=== PATIENT | female | born 1985 | race Caucasian/White ===

== ENCOUNTER 2017-12-25 17:46 | Emergency (ER) | payer OTHER ==
[2017-12-25] MEDS ORDERED: KETOROLAC 30 MG/ML 1 ML VIAL IVP STA (18:33)
[2017-12-25] MEDS ORDERED: SODIUM CHLORIDE 0.9% 1,000 ML IV STA (18:34)
[2017-12-25 18:48] LABS: Appearance,Urine Clear (Clear); Bilirubin,Urine Negative (Negative); Blood,Urine Trace (Negative); Color,Urine Yellow; Glucose,Urine (UA) Negative (Negative); Ketones,Urine Negative (Negative); Leukocyte Esterase,Urine Negative (Negative); Mucus,Urine Rare /hpf; Nitrite,Urine Negative (Negative); PH, Urine 7.5 (5.0-8.0); Protein,Urine Negative (Negative); RBC,Urine <1 /hpf (0-5); Specific Gravity,Urine 1.008 (1.001-1.035); Squamous Epithelial Cell,Urine 1 /hpf (0-4); Urobilinogen,Urine <2.0 mg/dL (<2.0); WBC,Urine 1 /hpf (0-5)
[2017-12-25 18:54] LABS: Basophils # (A) 0.1 k/uL (0-0.2); Basophils % (A) 1 %; Eosinophils # (A) 0.4 k/uL (0-0.7); Eosinophils % (A) 5 %; HCT 39.8 % (34.0-46.0); Lymphocytes # (A) 3.5 k/uL (1.0-4.8); Lymphocytes % (A) 41 %; MCH 29.6 pg (25.0-35.0); MCHC 32.7 g/dL (31.0-37.0); MCV 90.5 fL (80.0-100.0); Mean Platelet Volume 6.5; Monocytes # (A) 0.5 k/uL (0-1.0); Monocytes % (A) 6 %; Neutrophils # (A) 3.8 k/uL (1.3-7.7); Neutrophils % (A) 44 %; Platelet Count 353 k/uL (150-450); RBC 4.39 m/uL (3.80-5.40); RDW 14.3 % (11.5-15.5); WBC 8.6 k/uL (3.8-10.6)
[2017-12-25 19:06] LABS: ALT 425 U/L (9-52); AST 162 U/L (14-36); Albumin 4.4 g/dL (3.5-5.0); Alkaline Phosphatase 116 U/L (38-126); Amylase 74 U/L (30-110); Anion Gap 9 mmol/L; Blood Urea Nitrogen 12 mg/dL (7-17); Carbon Dioxide 25 mmol/L (22-30); Chloride 107 mmol/L (98-107); Glucose 95 mg/dL (74-99); Lipase 40 U/L (23-300); Sodium 141 mmol/L (137-145); Total Bilirubin 0.3 mg/dL (0.2-1.3); Total Protein 7.6 g/dL (6.3-8.2)
[2017-12-25] MEDS ORDERED: ONDANSETRON ODT 4 MG TAB PO STA (19:24)
--- NOTE | 2017-12-25 19:42 | ED ---
Abdominal Pain HPI - General Source: patient Mode of arrival: ambulatory Limitations: no limitations - History of Present Illness MD Complaint: abdominal pain -: days(s) (14) Location: RUQ Consistency: constant Improves With: nothing Worsens With: nothing Associated Symptoms: nausea <Joslyn Marte - Last Filed: 12/25/17 19:38> <Gagan Amaya - Last Filed: 12/25/17 20:59> - General Chief Complaint: Abdominal Pain Stated Complaint: poss food poisening Time Seen by Provider: 12/25/17 18:21 - History of Present Illness Initial Comments: 32-year-old female presents with right upper quadrant pain is gotten worse over the last 2 weeks. Patient states she has a history of hepatitis C from IV drug abuse. Patient states she's never got treatment but she does have a referral to a GI specialist. Patient does feel nausea but no vomiting. Patient is a history of this ulcerative colitis to she has had some irregular bowel movements on and off as well. No history of kidney stones no dysuria. No chance of . Patient has had her gallbladder removed. (Joslyn Marte) - Related Data Allergies Allergy/AdvReac Type Severity Reaction Status Date / Time codeine Allergy Rash/Hives Verified 12/25/17 17:53 meperidine [From Demerol] Allergy Rash/Hives Verified 12/25/17 17:53 Review of Systems ROS Other: All systems not noted in ROS Statement are negative. Constitutional: Denies: fever Endocrine: Reports: fatigue Gastrointestinal: Reports: abdominal pain, nausea. Denies: vomiting, diarrhea Genitourinary: Denies: urgency, dysuria <Joslyn Marte - Last Filed: 12/25/17 19:38> ROS Other: All systems not noted in ROS Statement are negative. <Gagan Amaya - Last Filed: 12/25/17 20:59> ROS Statement: Those systems with pertinent positive or pertinent negative responses have been documented in the HPI. Past Medical History Additional Past Medical History / Comment(s): UC, diverticulitis, Hep C History of Any Multi-Drug Resistant Organisms: None Reported Past Surgical History: Cholecystectomy, Orthopedic Surgery, Tonsillectomy Past Psychological History: Anxiety, PTSD Smoking Status: Current every day smoker Past Alcohol Use History: None Reported Past Drug Use History: Marijuana <Joslyn Marte - Last Filed: 12/25/17 19:38> General Exam Limitations: no limitations General appearance: alert, in no apparent distress Head exam: Present: atraumatic, normocephalic, normal inspection Eye exam: Present: normal appearance ENT exam: Present: normal exam, mucous membranes moist Neck exam: Present: meningismus Respiratory exam: Present: normal lung sounds bilaterally Cardiovascular Exam: Present: regular rate, normal rhythm, normal heart sounds. Absent: systolic murmur, diastolic murmur, rubs, gallop, clicks GI/Abdominal exam: Present: soft, tenderness (Right upper quadrant tender), normal bowel sounds. Absent: distended, guarding, rebound, rigid Neurological exam: Present: alert, oriented X3, CN II-XII intact Psychiatric exam: Present: normal affect, normal mood <Joslyn Marte - Last Filed: 12/25/17 19:38> Course <Joslyn Marte - Last Filed: 12/25/17 19:38> <Gagan Amaya - Last Filed: 12/25/17 20:59> Vital Signs 12/25/17 17:54 Temperature 98.7 F Pulse Rate 106 H Respiratory 18 Rate Blood Pressure 120/79 O2 Sat by Pulse 97 Oximetry - Reevaluation(s) Reevaluation #1: 12/25/17 20:58 The patient is resting comfortably has no further complaints at this time I did review the imaging and reports patient will be discharged with follow-up with her doctor and with GI. (Gagan Amaya) Medical Decision Making - Lab Data Result diagrams: 12/25/17 18:45 12/25/17 18:45 <Joslyn Marte - Last Filed: 12/25/17 19:38> - Lab Data Result diagrams: 12/25/17 18:45 12/25/17 18:45 <Gagan Amaya - Last Filed: 12/25/17 20:59> - Medical Decision Making Reviewed labs slightly elevated liver enzymes patient aware waiting on ultrasound. Dr. Amaya be taking over patient care. Patient given Toradol for discomfort along with Zofran for nausea. (Joslyn Marte) - Lab Data Lab Results 12/25/17 12/25/17 12/25/17 Range/Units 18:36 18:36 18:45 WBC (3.8-10.6) k/uL RBC (3.80-5.40) m/uL Hgb (11.4-16.0) gm/dL Hct (34.0-46.0) % MCV (80.0-100.0) fL MCH (25.0-35.0) pg MCHC (31.0-37.0) g/dL RDW (11.5-15.5) % Plt Count (150-450) k/uL Neutrophils % % Lymphocytes % % Monocytes % % Eosinophils % % Basophils % % Neutrophils # (1.3-7.7) k/uL Lymphocytes # (1.0-4.8) k/uL Monocytes # (0-1.0) k/uL Eosinophils # (0-0.7) k/uL Basophils # (0-0.2) k/uL Sodium 141 (137-145) mmol/L Potassium 4.0 (3.5-5.1) mmol/L Chloride 107 (98-107) mmol/L Carbon Dioxide 25 (22-30) mmol/L Anion Gap 9 mmol/L BUN 12 (7-17) mg/dL Creatinine 0.70 (0.52-1.04) mg/dL Est GFR (CKD-EPI)AfAm >90 (>60 ml/min/1.73 sqM) Est GFR (CKD-EPI)NonAf >90 (>60 ml/min/1.73 sqM) Glucose 95 (74-99) mg/dL Calcium 10.0 (8.4-10.2) mg/dL Total Bilirubin 0.3 (0.2-1.3) mg/dL AST 162 H (14-36) U/L ALT 425 H (9-52) U/L Alkaline Phosphatase 116 (38-126) U/L Total Protein 7.6 (6.3-8.2) g/dL Albumin 4.4 (3.5-5.0) g/dL Amylase 74 (30-110) U/L Lipase 40 (23-300) U/L Urine Color Yellow Urine Appearance Clear (Clear) Urine pH 7.5 (5.0-8.0) Ur Specific [place] 1.008 (1.001-1.035) Urine Protein Negative (Negative) Urine Glucose (UA) Negative (Negative) Urine Ketones Negative (Negative) Urine Blood Trace H (Negative) Urine Nitrite Negative (Negative) Urine Bilirubin Negative (Negative) Urine Urobilinogen <2.0 (<2.0) mg/dL Ur Leukocyte Esterase Negative (Negative) Urine RBC <1 (0-5) /hpf Urine WBC 1 (0-5) /hpf Ur Squamous Epith Cells 1 (0-4) /hpf Urine Mucus Rare H (None) /hpf Urine HCG, Qual Not Detected (Not Detectd) 12/25/17 Range/Units 18:45 WBC 8.6 (3.8-10.6) k/uL RBC 4.39 (3.80-5.40) m/uL Hgb 13.0 (11.4-16.0) gm/dL Hct 39.8 (34.0-46.0) % MCV 90.5 (80.0-100.0) fL MCH 29.6 (25.0-35.0) pg MCHC 32.7 (31.0-37.0) g/dL RDW 14.3 (11.5-15.5) % Plt Count 353 (150-450) k/uL Neutrophils % 44 % Lymphocytes % 41 % Monocytes % 6 % Eosinophils % 5 % Basophils % 1 % Neutrophils # 3.8 (1.3-7.7) k/uL Lymphocytes # 3.5 (1.0-4.8) k/uL Monocytes # 0.5 (0-1.0) k/uL Eosinophils # 0.4 (0-0.7) k/uL Basophils # 0.1 (0-0.2) k/uL Sodium (137-145) mmol/L Potassium (3.5-5.1) mmol/L Chloride (98-107) mmol/L Carbon Dioxide (22-30) mmol/L Anion Gap mmol/L BUN (7-17) mg/dL Creatinine (0.52-1.04) mg/dL Est GFR (CKD-EPI)AfAm (>60 ml/min/1.73 sqM) Est GFR (CKD-EPI)NonAf (>60 ml/min/1.73 sqM) Glucose (74-99) mg/dL Calcium (8.4-10.2) mg/dL Total Bilirubin (0.2-1.3) mg/dL AST (14-36) U/L ALT (9-52) U/L Alkaline Phosphatase (38-126) U/L Total Protein (6.3-8.2) g/dL Albumin (3.5-5.0) g/dL Amylase (30-110) U/L Lipase (23-300) U/L Urine Color Urine Appearance (Clear) Urine pH (5.0-8.0) Ur Specific [place] (1.001-1.035) Urine Protein (Negative) Urine Glucose (UA) (Negative) Urine Ketones (Negative) Urine Blood (Negative) Urine Nitrite (Negative) Urine Bilirubin (Negative) Urine Urobilinogen (<2.0) mg/dL Ur Leukocyte Esterase (Negative) Urine RBC (0-5) /hpf Urine WBC (0-5) /hpf Ur Squamous Epith Cells (0-4) /hpf Urine Mucus (None) /hpf Urine HCG, Qual (Not Detectd) Disposition <Joslyn Marte - Last Filed: 12/25/17 19:38> Is patient prescribed a controlled substance at d/c from ED?: No <Gagan Amaya - Last Filed: 12/25/17 20:59> Clinical Impression: RUQ abdominal pain, Hepatitis C Disposition: HOME SELF-CARE Condition: Good Instructions: Abdominal Pain (ED) Referrals: Yuliana Bañuelos MD [Primary Care Provider] - 1-2 days Berlin Cruz MD [STAFF PHYSICIAN] - 1-2 days
[2017-12-25] MEDS ORDERED: ALPRAZolam 1 MG TAB PO STA (20:09)
--- NOTE | 2017-12-25 20:11 | US ---
EXAMINATION TYPE: US abdomen complete DATE OF EXAM: 12/25/2017 COMPARISON: NONE CLINICAL HISTORY: Pain. N/V/D x 1 day, patient thinks she had food poisoning, h/o fracturing 3 ribs o n the right side 3 months ago, pt unsure if pain is from that or her liver since she has Hep C, lula cystectomy EXAM MEASUREMENTS: Liver Length: 15.8 cm Gallbladder Wall: Surgically absent CBD: 0.5 cm Spleen: 9.4 cm Right Kidney: 9.0 x 3.9 x 4.2 cm Left Kidney: 9.6 x 4.6 x 5.2 cm limitations due to bowel gas, patient unable to take deep breath and hold due to rib pain, large dumont bitus Pancreas: limited views appear wnl Liver: difficult to penetrate, not enlarged Gallbladder: Surgically absent The liver is homogenous. The intrahepatic portion of the IVC and proximal abdominal aorta are within normal limits. There is no evidence of cholelithiasis. Common bile duct is unremarkable. The visu alized portions of the pancreas are homogenous. The spleen is unremarkable. Kidneys are symmetric a nd free of hydronephrosis. No renal lesions are seen. IMPRESSION: No sonographic evidence of acute intra-abdominal process.
[2017-12-25 21:06] VITALS: BP 114/73; PULSE 72; RESP 16; TEMP 97.8
== END 2017-12-25 21:06 | disposition home or self-care (01) ==
LOC: EC 17:46
DX: B19.20 Unspecified viral hepatitis C without hepatic coma (principal); F17.200 Nicotine dependence, unspecified, uncomplicated; Z90.49 Acquired absence of other specified parts of digestive tract; Z88.5 Allergy status to narcotic agent
CPT/HCPCS: 36415; 80053; 82150; 83690; 85025; 81001; 81025; 76700; 99284; 96374; 96361 ×2; J1885

== ENCOUNTER 2017-12-26 13:06 | Inpatient (IN) | payer OTHER ==
[2017-12-26 14:14] LABS: ALT 495 U/L (9-52); AST 296 U/L (14-36); Albumin 3.9 g/dL (3.5-5.0); Alkaline Phosphatase 178 U/L (38-126); Anion Gap 8 mmol/L; Blood Urea Nitrogen 20 mg/dL (7-17); Calcium 10.2 mg/dL (8.4-10.2); Carbon Dioxide 19 mmol/L (22-30); Chloride 112 mmol/L (98-107); Glucose 120 mg/dL (74-99); Potassium 4.1 mmol/L (3.5-5.1); Sodium 139 mmol/L (137-145); Total Bilirubin 0.6 mg/dL (0.2-1.3); Total Protein 6.8 g/dL (6.3-8.2)
[2017-12-26 14:28] LABS: HCT 38.5 % (34.0-46.0); HGB 12.5 gm/dL (11.4-16.0); MCHC 32.6 g/dL (31.0-37.0); MCV 92.1 fL (80.0-100.0); Mean Platelet Volume 6.7; Platelet Count 313 k/uL (150-450); RBC 4.18 m/uL (3.80-5.40); RDW 14.8 % (11.5-15.5); WBC 19.9 k/uL (3.8-10.6)
[2017-12-26] MEDS ORDERED: LORazepam 2 MG/ML INJ IV STA (14:41)
[2017-12-26] MEDS ORDERED: ONDANSETRON 4 MG/2 ML VIAL IVP STA (14:41)
[2017-12-26] MEDS ORDERED: SODIUM CHLORIDE 0.9% 1,000 ML IV STA ×2 (14:41→15:53)
[2017-12-26 14:56] LABS: Band Neutrophils % 14 %; Monocytes # (M) 1.19 k/uL (0-1.0); Neutrophils % (M) 76 %; Nucleated Red Blood Cells 0 /100 WBC (0-0); Total Cells Counted 200
[2017-12-26 14:57] LABS: Polychromasia Present; Toxic Vacuolation Present
[2017-12-26 14:58] LABS: Appearance,Urine Clear (Clear); Bilirubin,Urine Negative (Negative); Blood,Urine Negative (Negative); Color,Urine Light Yellow; Glucose,Urine (UA) Negative (Negative); Ketones,Urine Negative (Negative); Leukocyte Esterase,Urine Negative (Negative); Nitrite,Urine Negative (Negative); Protein,Urine Negative (Negative); Specific Gravity,Urine 1.005 (1.001-1.035); Urobilinogen,Urine <2.0 mg/dL (<2.0)
[2017-12-26] MEDS ORDERED: diphenhydrAMINE 50 MG/ML 1 ML VIAL IVP STA ×2 (15:14→15:55)
[2017-12-26] MEDS ORDERED: ACETAMINOPHEN IV (For NPO) 1,000 MG in EMPTY BAG 1 BAG IVPB STA (15:53)
[2017-12-26] MEDS ORDERED: FAMOTIDINE 20 MG/2 ML VIAL IV STA (15:55)
[2017-12-26] MEDS ORDERED: cefTRIAXone IN SWFI 1,000 MG/10 ML SYRINGE IVP STA (16:04)
[2017-12-26] MEDS ORDERED: cefTRIAXone 2,000 MG in SODIUM CHLORIDE 0.9% 100 ML IVPB STA (16:06)
--- NOTE | 2017-12-26 16:07 | ED ---
General Adult HPI - General Source: patient, RN notes reviewed, old records reviewed Mode of arrival: EMS Limitations: no limitations <Vin Weaver - Last Filed: 12/26/17 16:04> <Song Coello - Last Filed: 12/26/17 17:34> - General Chief complaint: Nausea/Vomiting/Diarrhea Stated complaint: fever/nausea/vomiting Time Seen by Provider: 12/26/17 14:35 - History of Present Illness Initial comments: Patient is a 32-year-old female significant past medical history for hepatitis C , ulcerative colitis, diverticulitis, presenting to the emergency room today with a chief complaint of increased nausea vomiting and diarrhea. Patient does admit that she was seen here in the emergency room yesterday for same complaint. She states she went home she was able to eat dinner. She states she woke up at 5 AM with increased symptoms of nausea vomiting diarrhea. Denies any signs of blood in the emesis or stool. Patient does admit to pain in the lower abdomen. Unsure if it's similar to pain that she's had in the past with her colitis or diverticulitis. Patient denies any other complaint or symptoms. (Vin Weaver) - Related Data Home Medications Medication Instructions Recorded Confirmed ALPRAZolam [Xanax] 0.5 mg PO DAILY PRN 12/26/17 12/26/17 Acetaminophen Tab [Tylenol Tab] 500 mg PO Q6H PRN 12/26/17 12/26/17 Dicyclomine [Bentyl] 20 mg PO QID PRN 12/26/17 12/26/17 Mesalamine [Asacol Hd] 800 mg PO QID 12/26/17 12/26/17 Methocarbamol [Robaxin-750] 750 mg PO TID PRN 12/26/17 12/26/17 Mirtazapine [Remeron] 30 mg PO HS PRN 12/26/17 12/26/17 Ondansetron HCl [Zofran] 8 mg PO BID PRN 12/26/17 12/26/17 cloNIDine HCL [Catapres] 0.1 mg PO TID 12/26/17 12/26/17 Allergies Allergy/AdvReac Type Severity Reaction Status Date / Time codeine Allergy Rash/Hives Verified 12/26/17 14:57 meperidine [From Demerol] Allergy Rash/Hives Verified 12/26/17 14:57 Review of Systems ROS Other: All systems not noted in ROS Statement are negative. <Vin Weaver - Last Filed: 12/26/17 16:04> ROS Other: All systems not noted in ROS Statement are negative. <ModeSong - Last Filed: 12/26/17 17:34> ROS Statement: Those systems with pertinent positive or pertinent negative responses have been documented in the HPI. Past Medical History Past Medical History: No Reported History Additional Past Medical History / Comment(s): UC, diverticulitis, Hep C History of Any Multi-Drug Resistant Organisms: None Reported Past Surgical History: Cholecystectomy, Orthopedic Surgery, Tonsillectomy Past Psychological History: Anxiety, PTSD Smoking Status: Current every day smoker Past Alcohol Use History: None Reported Past Drug Use History: Marijuana <Vin Weaver - Last Filed: 12/26/17 16:04> General Exam Limitations: no limitations <Vin Weaver - Last Filed: 12/26/17 16:04> <ModeSong - Last Filed: 12/26/17 17:34> - General Exam Comments Initial Comments: General: The patient is awake and alert, in no distress, and does not appear acutely ill. Eye: Pupils are equal, round and reactive to light, extra-ocular movements are intact. No nystagmus. There is normal conjunctiva bilaterally. No signs of icterus. Ears, nose, mouth and throat: There are moist mucous membranes and no oral lesions. Neck: The neck is supple, there is no tenderness or JVD. Cardiovascular: There is a regular rate and rhythm. No murmur, rub or gallop is appreciated. Respiratory: Lungs are clear to auscultation, respirations are non-labored, breath sounds are equal. No wheezes, stridor, rales, or rhonchi. Gastrointestinal: Abdomen soft on palpation. Patient does have tenderness both right and left lower quadrants. No rebound, guarding. Musculoskeletal: Normal ROM, no tenderness. Strength 5/5. Sensation intact. Pulses equal bilaterally 2+. Neurological: A&O x 3. CN II-XII intact, There are no obvious motor or sensory deficits. Coordination appears grossly intact. Speech is normal. Skin: Skin is warm and dry and no rashes or lesions are noted. Psychiatric: Cooperative, appropriate mood & affect, normal judgment. (Vin Weaver) Pelvic exam was done mild cervical motion tenderness noticed cervical cultures were done and Flagyl was added to pre-existing Rocephin and was spoke to Dr. Escobar considering she had a fever chills she be treated for possible sepsis. Endometritis. CT report was reviewed noticed inflammation or fullness of the uterus pelvic ultrasound is ordered as well (Song Coello) Course <Vin Weaver - Last Filed: 12/26/17 16:04> <Song Coello - Last Filed: 12/26/17 17:34> Vital Signs 12/26/17 12/26/17 12/26/17 13:31 15:45 16:59 Temperature 99.6 F 100.2 F H 100.3 F H Pulse Rate 148 H 123 H 126 H Respiratory 18 18 18 Rate Blood Pressure 99/70 101/59 101/64 O2 Sat by Pulse 99 100 99 Oximetry General is reassessed at term 1630, CT of the abdomen now showed along the nodule 2.7 cm in size review of the CT also showed some inflammation of the uterus white count is elevated she is afebrile and she also stated that 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 Escobar.Our Director Of Sustainability Programs orlin Bowen goes to City call (Song Coello) - Reevaluation(s) Reevaluation #1: 12/26/17 16:06 Case discussed and signed out to attending physician Dr. Coello at this time. Patient Ct currently pending. (Vin Weaver) Medical Decision Making - Lab Data Result diagrams: 12/26/17 13:45 12/26/17 13:45 <Vin Weaver - Last Filed: 12/26/17 16:04> - Lab Data Result diagrams: 12/26/17 13:45 12/26/17 13:45 <Song Coello - Last Filed: 12/26/17 17:34> - Lab Data Lab Results 12/26/17 12/26/17 12/26/17 Range/Units 13:45 13:45 14:50 WBC 19.9 H (3.8-10.6) k/uL RBC 4.18 (3.80-5.40) m/uL Hgb 12.5 (11.4-16.0) gm/dL Hct 38.5 (34.0-46.0) % MCV 92.1 (80.0-100.0) fL MCH 30.0 (25.0-35.0) pg MCHC 32.6 (31.0-37.0) g/dL RDW 14.8 (11.5-15.5) % Plt Count 313 (150-450) k/uL Neutrophils % (Manual) 76 % Band Neutrophils % 14 % Lymphocytes % (Manual) 5 % Monocytes % (Manual) 6 % Neutrophils # (Manual) 17.90 H (1.3-7.7) k/uL Lymphocytes # (Manual) 1.00 (1.0-4.8) k/uL Monocytes # (Manual) 1.19 H (0-1.0) k/uL Nucleated RBCs 0 (0-0) /100 WBC Manual Slide Review Performed Toxic Vacuolation Present Polychromasia Present Sodium 139 (137-145) mmol/L Potassium 4.1 (3.5-5.1) mmol/L Chloride 112 H (98-107) mmol/L Carbon Dioxide 19 L (22-30) mmol/L Anion Gap 8 mmol/L BUN 20 H (7-17) mg/dL Creatinine 0.70 (0.52-1.04) mg/dL Est GFR (CKD-EPI)AfAm >90 (>60 ml/min/1.73 sqM) Est GFR (CKD-EPI)NonAf >90 (>60 ml/min/1.73 sqM) Glucose 120 H (74-99) mg/dL Plasma Lactic Acid Eulalio (0.7-2.0) mmol/L Calcium 10.2 (8.4-10.2) mg/dL Total Bilirubin 0.6 (0.2-1.3) mg/dL AST 296 H (14-36) U/L ALT 495 H (9-52) U/L Alkaline Phosphatase 178 H (38-126) U/L Total Protein 6.8 (6.3-8.2) g/dL Albumin 3.9 (3.5-5.0) g/dL Urine Color Light Yellow Urine Appearance Clear (Clear) Urine pH 7.0 (5.0-8.0) Ur Specific [place] 1.005 (1.001-1.035) Urine Protein Negative (Negative) Urine Glucose (UA) Negative (Negative) Urine Ketones Negative (Negative) Urine Blood Negative (Negative) Urine Nitrite Negative (Negative) Urine Bilirubin Negative (Negative) Urine Urobilinogen <2.0 (<2.0) mg/dL Ur Leukocyte Esterase Negative (Negative) 12/26/17 Range/Units 16:50 WBC (3.8-10.6) k/uL RBC (3.80-5.40) m/uL Hgb (11.4-16.0) gm/dL Hct (34.0-46.0) % MCV (80.0-100.0) fL MCH (25.0-35.0) pg MCHC (31.0-37.0) g/dL RDW (11.5-15.5) % Plt Count (150-450) k/uL Neutrophils % (Manual) % Band Neutrophils % % Lymphocytes % (Manual) % Monocytes % (Manual) % Neutrophils # (Manual) (1.3-7.7) k/uL Lymphocytes # (Manual) (1.0-4.8) k/uL Monocytes # (Manual) (0-1.0) k/uL Nucleated RBCs (0-0) /100 WBC Manual Slide Review Toxic Vacuolation Polychromasia Sodium (137-145) mmol/L Potassium (3.5-5.1) mmol/L Chloride (98-107) mmol/L Carbon Dioxide (22-30) mmol/L Anion Gap mmol/L BUN (7-17) mg/dL Creatinine (0.52-1.04) mg/dL Est GFR (CKD-EPI)AfAm (>60 ml/min/1.73 sqM) Est GFR (CKD-EPI)NonAf (>60 ml/min/1.73 sqM) Glucose (74-99) mg/dL Plasma Lactic Acid Eulalio 2.0 (0.7-2.0) mmol/L Calcium (8.4-10.2) mg/dL Total Bilirubin (0.2-1.3) mg/dL AST (14-36) U/L ALT (9-52) U/L Alkaline Phosphatase (38-126) U/L Total Protein (6.3-8.2) g/dL Albumin (3.5-5.0) g/dL Urine Color Urine Appearance (Clear) Urine pH (5.0-8.0) Ur Specific [place] (1.001-1.035) Urine Protein (Negative) Urine Glucose (UA) (Negative) Urine Ketones (Negative) Urine Blood (Negative) Urine Nitrite (Negative) Urine Bilirubin (Negative) Urine Urobilinogen (<2.0) mg/dL Ur Leukocyte Esterase (Negative) Disposition <Vin Weaver - Last Filed: 12/26/17 16:04> <Song Coello - Last Filed: 12/26/17 17:34> Clinical Impression: Fever, Lung nodule, Leukocytosis Disposition: ADMITTED IP TO THIS HOSP Condition: Good Referrals: Yuliana Bañuelos MD [Primary Care Provider] - 1-2 days
--- NOTE | 2017-12-26 16:14 | CT ---
EXAMINATION TYPE: CT abdomen pelvis w con DATE OF EXAM: 12/26/2017 HISTORY: Pelvic pain with nausea and diarrhea CT DLP: 1558mGycm Automated Exposure Control for Dose Reduction was Utilized. CONTRAST: CT scan of the abdomen and pelvis is performed with IV Contrast, patient injected with 100 mL of Isov ue 300. COMPARISON: 12/25/2017 abdominal ultrasound FINDINGS: LUNG BASES: Bibasilar subsegmental atelectasis is present. 7 mm right lower lobe pulmonary nodule is also seen in series 3 image 4. LIVER/GB: No significant abnormality is appreciated. PANCREAS: No significant abnormality is seen. No ductal dilatation. SPLEEN: No significant abnormality is seen. No spinal megaly. ADRENALS: No significant abnormality is seen. KIDNEYS: Kidneys enhance symmetrically without hydronephrosis. BOWEL: Appendix is air-filled and within normal limits. No large or small bowel dilatation to suggest obstruction.. UTERUS/ADNEXA: Uterus is diffusely heterogenous. Follicular and/or cystic changes are seen of the ova fidencio. LYMPH NODES: No greater than 1cm abdominal or pelvic lymph nodes are appreciated. OSSEOUS STRUCTURES: Osseous structures are intact. IMPRESSION: 1. Heterogenous uterine enhancement and follicular/cystic changes of the ovaries. These changes may b e physiologic, however pelvic ultrasound could be performed for further assessment in this patient wi th pelvic pain as there is no apparent acute intra-abdominal pathology on CT to explain the patient's pelvic pain. 2. 7 mm right lower lobe pulmonary nodule for which follow-up CT thorax is recommended in 3-6 months due to the groundglass nature to evaluate for resolution or progression.
[2017-12-26] MEDS ORDERED: cefTRIAXone IN SWFI 2,000 MG/20 ML SYRINGE IVP ONE (16:30)
[2017-12-26] MEDS ORDERED: HYDROmorphone 0.5 MG/0.5 ML SYRINGE IVP STA (17:03)
[2017-12-26] MEDS ORDERED: METOCLOPRAMIDE 5 MG/ML 2 ML VIAL IVP STA (17:04)
[2017-12-26] MEDS ORDERED: metroNIDAZOLE-NS PMX 500 MG in SALINE 1 100ML.BAG IVPB STA (17:08)
[2017-12-26] MEDS ORDERED: HYDROmorphone 1 MG/ML 1 ML SYRINGE IVP PRN ×2 (17:34→17:47)
[2017-12-26] MEDS ORDERED: ONDANSETRON 4 MG/2 ML VIAL IVP PRN (17:34)
[2017-12-26] MEDS ORDERED: KETOROLAC 30 MG/ML 1 ML VIAL IVP PRN (17:34)
[2017-12-26] MEDS ORDERED: NALOXONE 0.4 MG/ML 1 ML VIAL IV PRN (17:34)
[2017-12-26] MEDS ORDERED: ONDANSETRON 4 MG TAB PO PRN (17:44)
[2017-12-26] MEDS ORDERED: ACETAMINOPHEN TAB 500 MG TAB PO PRN (17:44)
[2017-12-26] MEDS ORDERED: ALPRAZolam 0.5 MG TAB PO PRN (17:44)
[2017-12-26] MEDS ORDERED: SODIUM CHLORIDE 0.9% 2,000 ML IV ONE (17:46)
--- NOTE | 2017-12-26 19:40 | US ---
EXAMINATION TYPE: US transvaginal DATE OF EXAM: 12/26/2017 COMPARISON: NONE CLINICAL HISTORY: Pain. Pain TECHNIQUE: Transvaginal (TV). EXAM MEASUREMENTS: Uterus: 7.8 x 3.8 x 5.0 cm Endometrial Stripe: 0.30 cm Right Ovary: 2.9 x 2.1 x 2.5 cm Left Ovary: 2.3 x 1.7 x 4.3 cm 1. Uterus: Anteverted Nabothian cyst seen. 2. Endometrium: wnl 3. Right Ovary: wnl 4. Left Ovary: wnl Spectral, color and waveform doppler imaging shows good arterial and venous flow within the ovaries ; there is no evidence for ovarian torsion. 5. Bilateral Adnexa: wnl 6. Posterior cul-de-sac: wnl IMPRESSION: NO ACUTE PROCESS.
[2017-12-26] MEDS: BALSALAZIDE DISODIUM 750 MG CAPSULE PO SCH ×2 (21:20→21:41)
[2017-12-26] MEDS: SODIUM CHLORIDE 0.9% 1,000 ML IV SCH (21:40)
[2017-12-26] MEDS: cloNIDine HCL 0.1 MG TAB PO SCH (21:41)
[2017-12-26] MEDS: METHOCARBAMOL 750 MG TAB PO PRN (21:41)
[2017-12-26] MEDS: DICYCLOMINE 20 MG TAB PO PRN (21:41)
[2017-12-26] MEDS: MIRTAZAPINE 15 MG TAB PO PRN (21:42)
[2017-12-26] MEDS: ALPRAZolam 0.5 MG TAB PO SCH (22:45)
--- NOTE | 2017-12-27 00:10 | HP ---
HISTORY AND PHYSICAL DATE OF SERVICE: 12/26/2017. CHIEF COMPLAINT: A 32-year-old with nausea, vomiting, diarrhea. HISTORY OF PRESENT ILLNESS: A 32-year-old white female, history hepatitis C, Crohn's, diverticulitis, came into the ER with increased nausea, vomiting, diarrhea, and pelvic pain. ER ultrasound showed a possible follicular cyst. She had increasing nausea, vomiting, and diarrhea. She has been on a intermediate house for three months clean from cocaine. She wants her pain medicine increased and her Xanax increased to what her doses are at home. Denies any other symptoms. REVIEW OF SYSTEMS: Fourteen point review of systems negative except for mentioned in HPI. HOME MEDICINES: 1. Xanax t.i.d. 2. Bentyl 20 q.i.d. 3. Asacol 800 q.i.d. 4. Robaxin 750 t.i.d. 5. Remeron 30 at bedtime. 6. Zofran 8 mg b.i.d. 7. Catapres 0.1 t.i.d. for hypertension. ALLERGIES: CODEINE, DEMEROL. SURGICAL HISTORY: Cholecystectomy, orthopedic surgery, tonsillectomy, anxiety, posttraumatic stress disorder, current everyday smoker, history of Crohn disease, diverticulitis. PHYSICAL EXAM: A white female, obese. BMI is over 35. Temp 99 to a low grade 100.3, pulse is 108 at this time was 140s to 120s. On a media monitor. CARDIOVASCULAR: S1, S2. LUNGS: Transmitted upper airway sounds. GI: Soft. No guarding or rebound tenderness lower quadrants. HEMATOLOGY: Negative Homans. PELVIC: Exam in the ER showed mild cervical motion tenderness. PLAN: Cultures were done. Started on Flagyl and Rocephin for possible sepsis due to fevers and chills she had at home with possible sepsis, endometritis. Await RENTAL AGENT consult for possible PID. Infectious Disease consult. Continue with broad-spectrum antibiotics. Leukocytosis secondary to the pelvic infection possible pelvic inflammatory disease, endometritis. Please see further orders. Check labs in the morning. We will continue with broad- spectrum antibiotics. MMODL / IJN: [id number] /
[2017-12-27] MEDS: metroNIDAZOLE-NS PMX 500 MG in SALINE 1 100ML.BAG IVPB SCH ×3 (02:44→20:34)
[2017-12-27] MEDS: HYDROmorphone 1 MG/ML 1 ML SYRINGE IVP PRN ×7 (02:48→21:29)
[2017-12-27] MEDS: SODIUM CHLORIDE 0.9% 1,000 ML IV SCH ×2 (06:05→15:37)
[2017-12-27 07:08] LABS: Basophils # (A) 0.1 k/uL (0-0.2); Basophils % (A) 0 %; Eosinophils # (A) 0.2 k/uL (0-0.7); Eosinophils % (A) 1 %; HCT 31.3 % (34.0-46.0); Lymphocytes # (A) 2.2 k/uL (1.0-4.8); Lymphocytes % (A) 7 %; MCH 30.2 pg (25.0-35.0); MCV 94.3 fL (80.0-100.0); Mean Platelet Volume 6.8; Monocytes # (A) 0.9 k/uL (0-1.0); Monocytes % (A) 3 %; Neutrophils # (A) 26.7 k/uL (1.3-7.7); Neutrophils % (A) 88 %; Platelet Count 256 k/uL (150-450); RBC 3.32 m/uL (3.80-5.40); RDW 15.1 % (11.5-15.5)
[2017-12-27 07:23] LABS: ALT 282 U/L (9-52); AST 98 U/L (14-36); Albumin 2.7 g/dL (3.5-5.0); Alkaline Phosphatase 109 U/L (38-126); Anion Gap 2 mmol/L; Blood Urea Nitrogen 12 mg/dL (7-17); Calcium 8.3 mg/dL (8.4-10.2); Carbon Dioxide 23 mmol/L (22-30); Chloride 117 mmol/L (98-107); Glucose 96 mg/dL (74-99); Potassium 4.1 mmol/L (3.5-5.1); Sodium 142 mmol/L (137-145); Total Bilirubin 0.3 mg/dL (0.2-1.3); Total Protein 5.2 g/dL (6.3-8.2)
[2017-12-27 07:38] LABS: WBC 30.4 k/uL (3.8-10.6)
[2017-12-27] MEDS ORDERED: cefTRIAXone IN SWFI 2,000 MG/20 ML SYRINGE IVP SCH (09:00)
[2017-12-27] MEDS: BALSALAZIDE DISODIUM 750 MG CAPSULE PO SCH ×4 (09:14→21:48)
[2017-12-27] MEDS: NICOTINE 21MG/24HR PATCH TRANSDERM SCH (09:22)
[2017-12-27] MEDS: ALPRAZolam 0.5 MG TAB PO SCH ×3 (09:22→21:28)
[2017-12-27] MEDS: cloNIDine HCL 0.1 MG TAB PO SCH ×3 (09:42→21:29)
--- NOTE | 2017-12-27 13:45 | P.GSCN ---
History of Present Illness Consult date: 12/27/17 Reason for Consult: Abdominal pain History of present illness: This is a 32-year-old female with Dr. Kaleb Altamirano service. Patient complaints of abdominal pain. Patient ascribes nausea. She's also had some melena. Patient noted to have elevated white count. There is question history of ulcerative colitis. Past Medical History Past Medical History: No Reported History Additional Past Medical History / Comment(s): UC, diverticulitis, Hep C History of Any Multi-Drug Resistant Organisms: None Reported Past Surgical History: Cholecystectomy, Orthopedic Surgery, Tonsillectomy Past Psychological History: Anxiety, PTSD Smoking Status: Current every day smoker Past Alcohol Use History: None Reported Past Drug Use History: Marijuana - Past Family History Mother Family Medical History: No Reported History Medications and Allergies Home Medications Medication Instructions Recorded Confirmed Type ALPRAZolam [Xanax] 0.5 mg PO DAILY PRN 12/26/17 12/26/17 History Acetaminophen Tab [Tylenol Tab] 500 mg PO Q6H PRN 12/26/17 12/26/17 History Dicyclomine [Bentyl] 20 mg PO QID PRN 12/26/17 12/26/17 History Mesalamine [Asacol Hd] 800 mg PO QID 12/26/17 12/26/17 History Methocarbamol [Robaxin-750] 750 mg PO TID PRN 12/26/17 12/26/17 History Mirtazapine [Remeron] 30 mg PO HS PRN 12/26/17 12/26/17 History Ondansetron HCl [Zofran] 8 mg PO BID PRN 12/26/17 12/26/17 History cloNIDine HCL [Catapres] 0.1 mg PO TID 12/26/17 12/26/17 History Allergies Allergy/AdvReac Type Severity Reaction Status Date / Time codeine Allergy Rash/Hives Verified 12/26/17 21:29 meperidine [From Demerol] Allergy Rash/Hives Verified 12/26/17 21:29 Surgical - Exam Vital Signs Temp Pulse Resp BP Pulse Ox 99.6 F 148 H 18 99/70 99 12/26/17 13:31 12/26/17 13:31 12/26/17 13:31 12/26/17 13:31 12/26/17 13:31 - General well developed, no distress - Eyes PERRL - ENT normal pinna - Neck no masses - Respiratory normal expansion - Cardiovascular Rhythm: regular - Abdomen mild tenderness, no rebound/guarding Abdomen: soft Results - Labs 12/27/17 06:40 12/27/17 06:40 Abnormal Lab Results - Last 24 Hours (Table) 12/26/17 12/26/17 12/27/17 Range/Units 13:45 13:45 06:40 WBC 19.9 H 30.4 H* (3.8-10.6) k/uL RBC 3.32 L (3.80-5.40) m/uL Hgb 10.0 L D (11.4-16.0) gm/dL Hct 31.3 L (34.0-46.0) % Neutrophils # 26.7 H (1.3-7.7) k/uL Neutrophils # (Manual) 17.90 H (1.3-7.7) k/uL Monocytes # (Manual) 1.19 H (0-1.0) k/uL Chloride 112 H (98-107) mmol/L Carbon Dioxide 19 L (22-30) mmol/L BUN 20 H (7-17) mg/dL Glucose 120 H (74-99) mg/dL Calcium (8.4-10.2) mg/dL AST 296 H (14-36) U/L ALT 495 H (9-52) U/L Alkaline Phosphatase 178 H (38-126) U/L Total Protein (6.3-8.2) g/dL Albumin (3.5-5.0) g/dL 12/27/17 Range/Units 06:40 WBC (3.8-10.6) k/uL RBC (3.80-5.40) m/uL Hgb (11.4-16.0) gm/dL Hct (34.0-46.0) % Neutrophils # (1.3-7.7) k/uL Neutrophils # (Manual) (1.3-7.7) k/uL Monocytes # (Manual) (0-1.0) k/uL Chloride 117 H (98-107) mmol/L Carbon Dioxide (22-30) mmol/L BUN (7-17) mg/dL Glucose (74-99) mg/dL Calcium 8.3 L (8.4-10.2) mg/dL AST 98 H (14-36) U/L ALT 282 H (9-52) U/L Alkaline Phosphatase (38-126) U/L Total Protein 5.2 L (6.3-8.2) g/dL Albumin 2.7 L (3.5-5.0) g/dL Diabetes panel 12/26/17 12/27/17 Range/Units 13:45 06:40 Sodium 139 142 (137-145) mmol/L Potassium 4.1 4.1 (3.5-5.1) mmol/L Chloride 112 H 117 H (98-107) mmol/L Carbon Dioxide 19 L 23 (22-30) mmol/L BUN 20 H 12 (7-17) mg/dL Creatinine 0.70 0.58 (0.52-1.04) mg/dL Glucose 120 H 96 (74-99) mg/dL Calcium 10.2 8.3 L (8.4-10.2) mg/dL AST 296 H 98 H (14-36) U/L ALT 495 H 282 H (9-52) U/L Alkaline Phosphatase 178 H 109 (38-126) U/L Total Protein 6.8 5.2 L (6.3-8.2) g/dL Albumin 3.9 2.7 L (3.5-5.0) g/dL Calcium panel 12/26/17 12/27/17 Range/Units 13:45 06:40 Calcium 10.2 8.3 L (8.4-10.2) mg/dL Albumin 3.9 2.7 L (3.5-5.0) g/dL Pituitary panel 12/26/17 12/27/17 Range/Units 13:45 06:40 Sodium 139 142 (137-145) mmol/L Potassium 4.1 4.1 (3.5-5.1) mmol/L Chloride 112 H 117 H (98-107) mmol/L Carbon Dioxide 19 L 23 (22-30) mmol/L BUN 20 H 12 (7-17) mg/dL Creatinine 0.70 0.58 (0.52-1.04) mg/dL Glucose 120 H 96 (74-99) mg/dL Calcium 10.2 8.3 L (8.4-10.2) mg/dL Adrenal panel 12/26/17 12/27/17 Range/Units 13:45 06:40 Sodium 139 142 (137-145) mmol/L Potassium 4.1 4.1 (3.5-5.1) mmol/L Chloride 112 H 117 H (98-107) mmol/L Carbon Dioxide 19 L 23 (22-30) mmol/L BUN 20 H 12 (7-17) mg/dL Creatinine 0.70 0.58 (0.52-1.04) mg/dL Glucose 120 H 96 (74-99) mg/dL Calcium 10.2 8.3 L (8.4-10.2) mg/dL Total Bilirubin 0.6 0.3 (0.2-1.3) mg/dL AST 296 H 98 H (14-36) U/L ALT 495 H 282 H (9-52) U/L Alkaline Phosphatase 178 H 109 (38-126) U/L Total Protein 6.8 5.2 L (6.3-8.2) g/dL Albumin 3.9 2.7 L (3.5-5.0) g/dL Assessment and Plan Assessment: Abdominal pain, leukocytosis patient will be observed. Due to the melanotic she will undergo EGD in the a.m.
[2017-12-27 14:26] LABS: C. trachomatis,PCR Negative (Neg,Equiv); Chlamydia trachomatis Source Cervix; N. gonorrhoeae,PCR Negative (Neg,Equiv); Neisseria Source Cervix
[2017-12-27] MEDS: IOPAMIDOL-300 CONTRAST 30 ML VIAL (ORAL USE) PO PRN ×2 (15:56→17:09)
--- NOTE | 2017-12-27 17:17 | CONS ---
CONSULTATION DATE OF SERVICE: 12/27/2017. REASON FOR CONSULTATION: Sepsis. HISTORY OF PRESENT ILLNESS: The patient is a 32-year-old, female with past medical history significant for ulcerative colitis for the patient is currently on Asacol. She presented to the ER at [facility] yesterday afternoon with chief complaints of nausea, vomiting and diarrhea in addition to the abdominal pain. The pain has been mostly in the right upper quadrant area, more of a dull aching pain 3 to 4/10, and no radiation. The patient did feel nauseated and did have 2 episodes of vomiting. Did not report any diarrhea to me. However, did mention the same to the ER physician. The patient did have a fever of 102 degrees Fahrenheit at home. With these symptoms the patient presented to the ER and the patient did have a low-grade fever of 100.2. The patient did have CT of abdominal pain, unfortunately was only with IV contrast shows heterogenous uterine and has cystic changes of the ovaries. No abnormality was seen in the abdominal organs. Subsequently the patient did have a transvaginal ultrasound which was no acute process. The patient has been treated with Rocephin and Flagyl. The patient who did have a white count of 90 is up to 30,000; hence, Infectious Disease was consulted for further recommendations regarding antibiotic therapy. Patient also noted to have slightly elevated liver enzymes. REVIEW OF SYSTEMS: CONSTITUTIONAL: Positive for weakness along with the fever. EYES: No complaint. ENT: No complaint. RESPIRATORY: No complaint. CARDIOVASCULAR: No complaint. GENITOURINARY: No complaint. GASTROINTESTINAL: As per HPI. MUSCULOSKELETAL: No complaint. INTEGUMENTARY: No complaint. PSYCHOLOGICAL: No complaint. ENDOCRINE: No complaint. NEUROLOGIC: No complaint. PAST MEDICAL HISTORY: Significant for ulcerative colitis, diverticulitis, chronic hepatitis C. PAST SURGICAL HISTORY: Cholecystectomy, tonsillectomy. PAST PSYCHOLOGICAL HISTORY: Positive for anxiety and PTSD. SOCIAL HISTORY: Patient is current everyday smoker. Does admit to marijuana use. FAMILY HISTORY: No pertinent findings noticed. ALLERGIES: To CODEINE, . MEDICATIONS: Includes the patient is currently on Tylenol, Xanax, Quinolone, Catapres, Bentyl, Dilaudid, Toradol, Robaxin, Flagyl, Remeron, Narcan, nicotine patch, Zofran, Xanax, Rocephin. EXAMINATION: Blood pressure is 104/70 with a pulse of 104, temperature 98.1. T-max is 100.2. She is 99% on room air. General description is an elderly female lying in bed in no distress. No tachypnea or accessory muscle of respiration use. HEENT: Shows pallor, no scleral icterus. Oral mucosa is dry. No pharyngeal erythema or thrush. NECK: Trachea is central. No thyromegaly. LUNGS: Unlabored breathing. Clear to auscultation anteriorly. No wheeze or crackle. HEART: S1, S2. Regular rate and rhythm. ABDOMEN: Soft, mild tender right upper quadrant. No guarding or rigidity. No organomegaly. EXTREMITIES: No edema of the feet. SKIN EXAMINATION: No rash or mass palpable. NEUROLOGICAL: Patient is awake, alert, oriented, normal. LABS: Hemoglobin 10, white count 30.4, BUN of 12, creatinine 0.58. CT abdomen and pelvis and ultrasound report as mentioned above. DIAGNOSTIC IMPRESSION AND PLAN: Patient admitted to the hospital with sepsis and patient did have fever of 102 degrees Fahrenheit, the patient did have elevated white count. has been abdominal pain, nausea and vomiting and patient has tenderness on the right side. We need to rule out intraabdominal pathology. Unfortunately, the 1st CT scan was done without any oral contrast and that will limit the sensitivity of the same testing for intraabdominal process. PLAN: 1. We will obtain a CT of the abdomen and pelvis with oral contrast. 2. Discontinue Rocephin and start the patient on Unasyn 3 g every 6 hours. 3. We will follow up on clinical condition and culture to further adjust medication if needed. Thank you for this consultation. Will follow the patient along with you. MMODL / IJN: [id number] /
--- NOTE | 2017-12-27 17:29 | P.OBCN ---
History of Present Illness Consult date: 12/27/17 Reason for consult: other (Fever, pelvic pain, diarrhea, leukocytosis) History of present illness: The patient is a 32-year-old 4 para 1031 admitted through the emergency room with a history of significant diarrhea beginning approximately 2 days ago. She presented to the emergency room for these findings and was ultimately released back home. She was able to eat that evening but awoke in the middle the night with severe pain as well as rigors. She reported a fever of greater than 102 and had significant nausea along with significant diarrhea. She re- presented to the emergency room at which time she was sent for both computed tomography scan which demonstrated nominal findings in the pelvis of a heterogeneous uterus. Follow-up ultrasound demonstrated no significant findings of any kind. She does report that she has regular monthly menstrual cycles lasting approximately 4 days. She last had intercourse approximately 2 months ago and did not use protection at that time however does not have a concern for STDs. She reports she did have a Pap smear approximately 5 months ago which was reportedly normal. She also carries a history of ulcerative colitis and diverticulitis despite her young age. She has never had any surgery for these findings. Since being admitted to the hospital, she reports her pain is significantly more controlled and she is tolerating some by mouth fluids and solids. The diarrhea continues. Obstetrical history: 4 para 1031 with 1 term vaginal delivery without complications. She has had 3 miscarriages and/or elective interruptions of pregnancies without complications. She is currently using no method of contraception. She is not currently sexually active. Gynecologic history: Unremarkable with no history of any infections to include STDs. Review of Systems Review of systems is confined to history of present illness. Past Medical History Past Medical History: No Reported History Additional Past Medical History / Comment(s): UC, diverticulitis, Hep C History of Any Multi-Drug Resistant Organisms: None Reported Past Surgical History: Cholecystectomy, Orthopedic Surgery, Tonsillectomy Past Psychological History: Anxiety, PTSD Smoking Status: Current every day smoker Past Alcohol Use History: None Reported Past Drug Use History: Marijuana - Past Family History Mother Family Medical History: No Reported History Medications and Allergies Home Medications Medication Instructions Recorded Confirmed Type ALPRAZolam [Xanax] 0.5 mg PO DAILY PRN 12/26/17 12/26/17 History Acetaminophen Tab [Tylenol Tab] 500 mg PO Q6H PRN 12/26/17 12/26/17 History Dicyclomine [Bentyl] 20 mg PO QID PRN 12/26/17 12/26/17 History Mesalamine [Asacol Hd] 800 mg PO QID 12/26/17 12/26/17 History Methocarbamol [Robaxin-750] 750 mg PO TID PRN 12/26/17 12/26/17 History Mirtazapine [Remeron] 30 mg PO HS PRN 12/26/17 12/26/17 History Ondansetron HCl [Zofran] 8 mg PO BID PRN 12/26/17 12/26/17 History cloNIDine HCL [Catapres] 0.1 mg PO TID 12/26/17 12/26/17 History Allergies Allergy/AdvReac Type Severity Reaction Status Date / Time codeine Allergy Rash/Hives Verified 12/26/17 21:29 meperidine [From Demerol] Allergy Rash/Hives Verified 12/26/17 21:29 Exam Vital Signs Temp Pulse Pulse Resp BP Pulse Ox 12/27/17 16:00 104 H 12/27/17 10:02 97.8 F 12/27/17 09:50 96 12/27/17 08:15 98.1 F 104 H 19 104/70 99 12/27/17 03:00 96 96 12/26/17 22:30 108 H 12/26/17 22:27 98.3 F 108 H 12 109/61 96 12/26/17 22:12 111 H 12/26/17 19:08 98.2 F 111 H 16 101/72 93 L 12/26/17 17:35 98.9 F Intake and Output 12/27/17 12/27/17 12/27/17 06:59 14:59 22:59 Other: # Voids 1 1 1 In general, this is a well-developed, well-nourished white female in no acute distress. Her heart has a regular rhythm and rate without murmur. Her lungs are clear to auscultation bilaterally in all diaz. Her abdomen is nondistended, soft, nontender, and without any palpable masses. Her extremities are without any cyanosis, clubbing, or edema and are nontender to palpation bilaterally. Bimanual pelvic examination demonstrates normal external genitalia and BUS with normal vaginal mucosa and cervix. There is no cervical motion tenderness. Uterus is approximately 4-5 weeks in size, slightly anteverted, mobile, nontender, and normal in shape. The adnexa are normal and nontender without any palpable masses bilaterally. Results Result Diagrams: 12/27/17 06:40 12/27/17 06:40 Abnormal Lab Results - Last 24 Hours (Table) 12/27/17 12/27/17 Range/Units 06:40 06:40 WBC 30.4 H* (3.8-10.6) k/uL RBC 3.32 L (3.80-5.40) m/uL Hgb 10.0 L D (11.4-16.0) gm/dL Hct 31.3 L (34.0-46.0) % Neutrophils # 26.7 H (1.3-7.7) k/uL Chloride 117 H (98-107) mmol/L Calcium 8.3 L (8.4-10.2) mg/dL AST 98 H (14-36) U/L ALT 282 H (9-52) U/L Total Protein 5.2 L (6.3-8.2) g/dL Albumin 2.7 L (3.5-5.0) g/dL Assessment and Plan (1) Fever Current Visit: Yes Status: Acute Code(s): R50.9 - FEVER, UNSPECIFIED SNOMED Code(s): 787580187 (2) Leukocytosis Current Visit: Yes Status: Acute Code(s): D72.829 - ELEVATED WHITE BLOOD CELL COUNT, UNSPECIFIED SNOMED Code(s): 755644936 Plan: All imaging and examination is entirely negative for gynecologic source for her conditions. I would strongly suspect a GI etiology given her history as outlined in the chart. I do not see any gynecologic source for her symptoms and otherwise will then sign off the case but appreciate the consultation. If any further questions should arise, do not hesitate to call me back.
[2017-12-27] MEDS: AMPICILLIN-SULBACTAM 3 GM in SODIUM CHLORIDE 0.9% 100 ML IVPB SCH (18:45)
--- NOTE | 2017-12-27 20:26 | CT ---
EXAMINATION TYPE: CT abdomen pelvis w con DATE OF EXAM: 12/27/2017 HISTORY: Abdominal pain CT DLP: 1050.4mGycm Automated Exposure Control for Dose Reduction was Utilized. CONTRAST: CT scan of the abdomen and pelvis is performed with IV Contrast, patient injected with 100 mL of Isov ue 300. COMPARISON: 12/26/2017 FINDINGS: LUNG BASES: As seen on the prior examination there is bibasilar subsegmental atelectasis and a partia lly visualized 7 mm solid pulmonary nodule. LIVER/GB: No significant abnormality is appreciated. Gallbladder surgically absent. PANCREAS: No significant abnormality is seen. SPLEEN: No splenomegaly. ADRENALS: No nodularity or thickening. KIDNEYS: Kidneys enhance and excrete symmetrically with slight delayed phase of contrast in compariso n to the prior. BOWEL: Appendix is seen within the right lower quadrant, air-filled and within normal limits of size. No right lower quadrant fat stranding changes are seen. No dilated large or small bowel other than d ilated fluid-filled stomach from oral contrast ingestion.. UTERUS/ADNEXA: Again the uterus is heterogenous although pelvic ultrasound was performed on 12/26/2017 with no acute abnormality identified. LYMPH NODES: No greater than 1cm abdominal or pelvic lymph nodes are appreciated. OSSEOUS STRUCTURES: Osseous structures are intact. Old healed fracture of the right initial tuberosit y and punctate bone island of the left issue are noted. OTHER: No significant additional abnormality is seen. IMPRESSION: No significant acute finding is seen to account for patient's clinical symptoms. Again th e appendix is identified, air-filled and within normal limits. No evidence of bowel obstruction.
[2017-12-27] MEDS: MIRTAZAPINE 15 MG TAB PO PRN (21:48)
--- NOTE | 2017-12-27 22:53 | PN ---
PROGRESS NOTE SUBJECTIVE: This is a 32-year-old white female with a past medical history of ulcerative colitis, on Asacol. She came in with abdominal pain, diarrhea and vaginal pain with low-grade fevers. States she still does not feel good. White count is up to 30,000 today. Vital signs are reviewed. HEART: S1, S2. Lungs are clear. ABDOMEN: No guarding. Some lower abdominal pain. She is apparently going to get a CT scan of the abdomen to rule out intraabdominal process. She was started on Unasyn for IV antibiotics. Discontinue Rocephin. Await CT scan of the abdomen and pelvis and [facility] consultation. Prognosis guarded. Recheck labs in the morning. MMODL / IJN: [id number] /
[2017-12-28] MEDS: AMPICILLIN-SULBACTAM 3 GM in SODIUM CHLORIDE 0.9% 100 ML IVPB SCH ×4 (00:35→18:33)
[2017-12-28] MEDS: HYDROmorphone 1 MG/ML 1 ML SYRINGE IVP PRN ×7 (00:38→20:58)
[2017-12-28] MEDS: metroNIDAZOLE-NS PMX 500 MG in SALINE 1 100ML.BAG IVPB SCH ×3 (03:36→17:31)
[2017-12-28] MEDS: SODIUM CHLORIDE 0.9% 1,000 ML IV SCH ×2 (03:40→14:19)
[2017-12-28 07:09] LABS: Basophils # (A) 0.1 k/uL (0-0.2); Basophils % (A) 0 %; Eosinophils # (A) 0.3 k/uL (0-0.7); Eosinophils % (A) 2 %; HCT 29.3 % (34.0-46.0); HGB 9.1 gm/dL (11.4-16.0); Lymphocytes # (A) 2.4 k/uL (1.0-4.8); Lymphocytes % (A) 13 %; MCH 28.8 pg (25.0-35.0); MCHC 31.1 g/dL (31.0-37.0); MCV 92.5 fL (80.0-100.0); Monocytes # (A) 0.5 k/uL (0-1.0); Monocytes % (A) 3 %; Neutrophils # (A) 14.7 k/uL (1.3-7.7); Neutrophils % (A) 81 %; Platelet Count 236 k/uL (150-450); RBC 3.17 m/uL (3.80-5.40); WBC 18.3 k/uL (3.8-10.6)
[2017-12-28 07:20] LABS: ALT 198 U/L (9-52); AST 56 U/L (14-36); Albumin 2.8 g/dL (3.5-5.0); Alkaline Phosphatase 92 U/L (38-126); Anion Gap 5 mmol/L; Blood Urea Nitrogen 7 mg/dL (7-17); Calcium 8.5 mg/dL (8.4-10.2); Carbon Dioxide 20 mmol/L (22-30); Chloride 113 mmol/L (98-107); Glucose 84 mg/dL (74-99); Sodium 138 mmol/L (137-145); Total Bilirubin 0.2 mg/dL (0.2-1.3); Total Protein 5.3 g/dL (6.3-8.2)
[2017-12-28] MEDS: ALPRAZolam 1 MG TAB PO SCH ×3 (09:07→22:16)
[2017-12-28] MEDS: cloNIDine HCL 0.1 MG TAB PO SCH ×3 (09:12→22:15)
[2017-12-28] MEDS: NICOTINE 21MG/24HR PATCH TRANSDERM SCH (09:12)
[2017-12-28] MEDS: BALSALAZIDE DISODIUM 750 MG CAPSULE PO SCH ×3 (09:12→22:16)
--- NOTE | 2017-12-28 10:24 | P.CONS ---
History of Present Illness - Reason for Consult Consult date: 12/28/17 colitis Requesting physician: Kaleb Escobar - History of Present Illness 32-year-old female with a history of heroin cocaine use (less cocaine usage about 90 days), chronic hepatitis C without treatment, ulcerative colitis diagnosed in 2008 at [facility] Dr. Goodrich, PTSD, anxiety, nicotine cigarette dependency, cholecystectomy. Patient was originally evaluated in the ER on 12/25/2017 for right upper quadrant abdominal pain diarrhea nausea without emesis ultrasound abdomen reported no acute intra-abdominal process. She was advised to follow with PCP and GI and discharged. White count at that time was 8.6. Hemoglobin 13. Platelets 353. Readmitted the next day with worsening symptoms rigors chills fever greater than 102 at home. She has been experiencing increased nonbloody loose bowel movements 5-10 times a day over the last few week but exacerbated over the last week. Her normal bowel pattern is one maybe 2 somewhat loose nonbloody bowel movements daily. She reports a history of ulcerative colitis diagnosed in 2008 per colonoscopy and was advised Asacol therapy however due to insurance issues she did not continue the therapy. She reports yearly exacerbations of her ulcerative colitis at [facility] treated with steroids but again presently is not on maintenance medications. She has known about her hepatitis C infection for about 2 years she has been referred for outpatient therapy however secondary to her recent usage of cocaine about 90 days ago treatment has been deferred. Admission T-max 100.3 however she reports a fever greater than 102 prior to admission. White count 19.9 increased to 30.4 yesterday presently 18.3. Hemoglobin on admission 12.5 presently 9.1. MCV 92. Platelet 236. Her loose bowel movements have been intermittently "dark" she is scheduled for EGD today with general surgery for further evaluation. Her last colonoscopy was in 2017 at [facility] she thinks she may have had active disease but she is unsure. Stool occult blood negative. CT abdomen and pelvis 12/26/2017 and 12/27/2017 reported heterogeneous uterine enhancement and follicular cysts changes of the ovaries. No apparent acute intra-abdominal pathology on CT to explain her pain. Appendix identified air filled within normal limits. No evidence of bowel obstruction. She has been evaluated by [employer] as well as infectious disease. Presently receiving balsalazide 3 tablets intravenous antibiotics her symptoms are improving abdominal pain minimal. No recurrent fevers. Review of Systems Constitutional: Denies fever, chills, sweats, weight gain, or loss. HEENT: Negative for migraines, blurred vision or loss, earaches, drainage, tinnitus, oral mucosal lesions, dysphagia, or odynophagia. CARDIAC: Negative for chest pain, arrhythmias, or palpitation. RESPIRATORY: Negative for shortness of breath, hemoptysis, cough, or sputum production. GI: See HPI for pertinent findings. : Negative for hematuria, urgency, frequency, polyuria, or dysuria. GYNc: Denies possibility of . Negative vaginal discharge. MUSCULOSKELETAL: Negative for muscle aches, swelling, arthritis, and arthralgias. NEUROLOGIC: Negative for stroke or TIA. ENDOCRINE: Negative for thyroid problems. SKIN: Negative for rash or itching. PSYCHIATRIC: PTSD. Anxiety. Past Medical History Past Medical History: No Reported History Additional Past Medical History / Comment(s): UC, diverticulitis, Hep C History of Any Multi-Drug Resistant Organisms: None Reported Past Surgical History: Cholecystectomy, Orthopedic Surgery, Tonsillectomy Past Psychological History: Anxiety, PTSD Smoking Status: Current every day smoker Past Alcohol Use History: None Reported Past Drug Use History: Marijuana - Past Family History Mother Family Medical History: No Reported History Medications and Allergies Home Medications Medication Instructions Recorded Confirmed Type ALPRAZolam [Xanax] 0.5 mg PO DAILY PRN 12/26/17 12/26/17 History Acetaminophen Tab [Tylenol Tab] 500 mg PO Q6H PRN 12/26/17 12/26/17 History Dicyclomine [Bentyl] 20 mg PO QID PRN 12/26/17 12/26/17 History Mesalamine [Asacol Hd] 800 mg PO QID 12/26/17 12/26/17 History Methocarbamol [Robaxin-750] 750 mg PO TID PRN 12/26/17 12/26/17 History Mirtazapine [Remeron] 30 mg PO HS PRN 12/26/17 12/26/17 History Ondansetron HCl [Zofran] 8 mg PO BID PRN 12/26/17 12/26/17 History cloNIDine HCL [Catapres] 0.1 mg PO TID 12/26/17 12/26/17 History Allergies Allergy/AdvReac Type Severity Reaction Status Date / Time codeine Allergy Rash/Hives Verified 12/26/17 21:29 meperidine [From Demerol] Allergy Rash/Hives Verified 12/26/17 21:29 Physical Exam Vitals: Vital Signs Temp Pulse Pulse Resp BP Pulse Ox 12/28/17 06:45 16 12/28/17 06:16 98 F 95 16 122/69 97 12/28/17 00:58 98.5 F 84 16 102/67 95 12/28/17 00:00 84 16 12/27/17 20:42 109 H 16 12/27/17 20:39 98.4 F 109 H 16 115/75 97 12/27/17 16:02 97.9 F 107 H 24 116/77 96 12/27/17 16:00 104 H 12/27/17 13:45 98 F 95 16 122/69 97 Intake and Output 12/27/17 12/28/17 12/28/17 22:59 06:59 14:59 Intake Total 300 Balance 300 Intake: Oral 300 Other: Voiding Method Toilet Toilet # Voids 1 1 # Bowel Movements 1 General appearance: The patient is alert, oriented, in no acute distress. HET: Head is normocephalic and atraumatic. Pupils are equal and reactive. Oropharynx is clear without lesions. Neck: Supple without lymphadenopathy. Trachea midline. Heart: S1 S2. Regular rate and rhythm. Lungs: No crackles or wheezes are heard. Abdomen: Soft, very mild tenderness bilateral lower abdomen, nondistended with bowel sounds. No peritoneal signs. No palpable organomegaly or masses. Extremities: Normal skin color and turgor. No cyanosis, rash, ulceration, clubbing, or edema. Radial and pedal pulses are 2/4 bilaterally. Neurological: No focal deficits. Strength and sensation are grossly intact. Results CBC & Chem 7: 12/28/17 06:55 12/28/17 06:55 Labs: Abnormal Lab Results - Last 24 Hours (Table) 12/28/17 12/28/17 Range/Units 06:55 06:55 WBC 18.3 H (3.8-10.6) k/uL RBC 3.17 L (3.80-5.40) m/uL Hgb 9.1 L (11.4-16.0) gm/dL Hct 29.3 L (34.0-46.0) % Neutrophils # 14.7 H (1.3-7.7) k/uL Chloride 113 H (98-107) mmol/L Carbon Dioxide 20 L (22-30) mmol/L AST 56 H (14-36) U/L ALT 198 H (9-52) U/L Total Protein 5.3 L (6.3-8.2) g/dL Albumin 2.8 L (3.5-5.0) g/dL Microbiology - Last 24 Hours (Table) 12/26/17 13:45 Blood Culture - Preliminary Blood No Growth after [address] scan - abdomen: report reviewed (Dr. Meadows) US - abdomen: report reviewed (Dr. Meadows) Assessment and Plan (1) Abdominal pain Narrative/Plan: 32-year-old female admitted with acute abdominal pain fever rigors chills leukocytosis sepsis with unremarkable CT of the abdomen and pelvis and reported history of ulcerative colitis diagnosed 2009 via colonoscopy at outside facility. Presently receiving intravenous antibiotics and balsalazide with improvement of her clinical symptoms. Suspect infectious gastroenteritis colitis possible exacerbation of underlying ulcerative colitis per her reported history. Current Visit: Yes Status: Acute Code(s): R10.9 - UNSPECIFIED ABDOMINAL PAIN SNOMED Code(s): 36654684 (2) Ulcerative colitis Current Visit: Yes Status: Acute Code(s): K51.90 - ULCERATIVE COLITIS, UNSPECIFIED, WITHOUT COMPLICATIONS SNOMED Code(s): 76701784 (3) Fever Current Visit: Yes Status: Acute Code(s): R50.9 - FEVER, UNSPECIFIED SNOMED Code(s): 400504215 (4) Leukocytosis Current Visit: Yes Status: Acute Code(s): D72.829 - ELEVATED WHITE BLOOD CELL COUNT, UNSPECIFIED SNOMED Code(s): 368314265 (5) Hepatitis C Current Visit: No Status: Acute Code(s): B19.20 - UNSPECIFIED VIRAL HEPATITIS C WITHOUT HEPATIC COMA SNOMED Code(s): 85278513 (6) H/O: substance abuse Current Visit: Yes Status: Resolved Code(s): Z87.898 - PERSONAL HISTORY OF OTHER SPECIFIED CONDITIONS SNOMED Code(s): 537885658 (7) Transaminitis Current Visit: Yes Status: Acute Code(s): R74.0 - NONSPEC ELEV OF LEVELS OF TRANSAMNS & LACTIC ACID DEHYDRGNSE SNOMED Code(s): 850378030 Plan: 1. EGD scheduled today with general surgery. Stool studies requested. CRP today and in am. Hepatitis C serology. 2. Continue balsalazide. Medical records from [facility] requested regarding ulcerative colitis and hepatitis C history to review. 3. No steroids at this time patient is improving with antibiotics and balsalazide. Advised to follow-up in the office 2-3 weeks after discharge for reevaluation and review of outside records for further recommendations. Inpatient colonoscopy not planned at this time. We'll follow with you. Thank you for this kind referral and the opportunity to participate in the care of your patient. This consultation was discussed with Dr. Meadows. The impression and plan of care have been directed as dictated.
--- NOTE | 2017-12-28 14:00 | PN ---
PROGRESS NOTE DATE OF SERVICE: 12/28/2017 REASON FOR FOLLOWUP: Leukocytosis, possible abdominal source. INTERVAL HISTORY: The patient is currently afebrile. Her abdominal pain has improved. Slight nausea. Scheduled for an EGD this morning. No further vomiting. Still has some diarrhea. Abdominal pain has slightly decreased. PHYSICAL EXAMINATION: Blood pressure 126/87 with a pulse of 70, temperature 98, she is 96% on room air. General description is a middle-aged female, lying in bed in no distress. RESPIRATORY SYSTEM: Unlabored breathing, clear to auscultation anteriorly. HEART: S1, S2. Regular rate and rhythm. ABDOMEN: Soft, no tenderness. EXTREMITIES: No edema of the feet. LABS: White count of 18.3 with a BUN of 7, creatinine 0.56. Blood cultures have been negative. She did have a repeat CT abdominal and pelvis and did not show any acute abdominal pathology. DIAGNOSTIC IMPRESSION AND PLAN: Patient admitted to the hospital with abdominal pain and vomiting with concern for possible abdominal source. The patient did have elevated white count. Her white count condition showed no drain with addition of Unasyn yesterday so will e continued; however, we do not have any clear source at this point with the culture currently pending. Will keep the patient on Unasyn while waiting for the culture to finalize. Continue supportive care. MMODL / IJN: [id number] /
[2017-12-28] MEDS ORDERED: LIDOCAINE 1% INJ 10MG/ML (20 ML MDV) ONE (15:06)
[2017-12-28] MEDS ORDERED: PROPOFOL 10 MG/ML 20 ML VIAL IV ONE (15:06)
[2017-12-28] MEDS ORDERED: SODIUM CHLORIDE 0.9% 300 ML IV ONE (15:09)
[2017-12-28] MEDS ORDERED: PANTOPRAZOLE 40 MG TABLET PO STA (15:15)
--- NOTE | 2017-12-28 15:15 | P.OP ---
Date of Procedure: 12/28/17 Preoperative Diagnosis: Epigastric abdominal pain Nausea Postoperative Diagnosis: Antral ulcer Procedure(s) Performed: EGD Anesthesia: MAC Surgeon: Sudeep Low Pathology: other (Antral ulcer) Condition: stable Disposition: PACU Description of Procedure: The patient's placed on the endoscopy table in the lateral position. She received IV sedation. The gastroscope placed oropharynx and passed in the esophagus. The scope was then placed through the pylorus. The first and second portion of the duodenum appeared normal. Scope was then brought back the antrum and in the prepyloric area there was an ulcer seen there is no active bleeding seen the ulcer area was biopsied. The scope was then retroflexed and the remainder stomach appeared normal. There is no significant hiatal hernia. The GE junction was at 40 cm. The distal esophagus appeared normal. The proximal esophagus appeared normal. Scope was withdrawn for patient.
[2017-12-28 17:24] LABS: Hepatitis A Antibody IgM Non-Reactive (Non-Reactive); Hepatitis B Core IgM Non-Reactive (Non-Reactive)
--- NOTE | 2017-12-28 18:42 | PN ---
PROGRESS NOTE SUBJECTIVE: This is a 32-year-old white female with fever, early sepsis, leukocytosis. Continues current treatment. IV Flagyl for colitis is being given. White count is down to 18,000. Await GI recommendations prior to discharge. Two CT scans of the abdomen have been negative for intraabdominal infection. 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 CARDIOVASCULAR: S1, S2. LUNGS: Clear. GI: Soft. HEMATOLOGY: Negative Homans. ASSESSMENT: Colitis, possible gastroenteritis. Continue with current treatments. Follow up in the next 24-48 hours for possible discharge on oral Flagyl if continues to improve. MMODL / IJN: [id number] /
[2017-12-28] MEDS: MIRTAZAPINE 15 MG TAB PO PRN (22:15)
[2017-12-29] MEDS: metroNIDAZOLE-NS PMX 500 MG in SALINE 1 100ML.BAG IVPB SCH ×2 (00:01→08:41)
[2017-12-29] MEDS: HYDROmorphone 1 MG/ML 1 ML SYRINGE IVP PRN ×4 (00:01→09:33)
[2017-12-29 00:07] VITALS: RESP 16
[2017-12-29] MEDS: AMPICILLIN-SULBACTAM 3 GM in SODIUM CHLORIDE 0.9% 100 ML IVPB SCH ×2 (01:06→05:49)
[2017-12-29 06:32] LABS: Basophils % (A) 0 %; Eosinophils # (A) 0.3 k/uL (0-0.7); Eosinophils % (A) 2 %; HCT 31.7 % (34.0-46.0); HGB 9.9 gm/dL (11.4-16.0); Lymphocytes # (A) 1.9 k/uL (1.0-4.8); Lymphocytes % (A) 17 %; MCH 28.5 pg (25.0-35.0); MCHC 31.2 g/dL (31.0-37.0); MCV 91.3 fL (80.0-100.0); Mean Platelet Volume 7.1; Monocytes # (A) 0.4 k/uL (0-1.0); Monocytes % (A) 4 %; Neutrophils # (A) 8.1 k/uL (1.3-7.7); Neutrophils % (A) 75 %; Platelet Count 269 k/uL (150-450); RBC 3.48 m/uL (3.80-5.40); RDW 14.8 % (11.5-15.5); WBC 10.9 k/uL (3.8-10.6)
[2017-12-29] MEDS: SODIUM CHLORIDE 0.9% 1,000 ML IV SCH ×2 (06:41→09:59)
[2017-12-29 06:46] LABS: ALT 188 U/L (9-52); AST 75 U/L (14-36); Albumin 3.1 g/dL (3.5-5.0); Alkaline Phosphatase 132 U/L (38-126); Anion Gap 6 mmol/L; Blood Urea Nitrogen 7 mg/dL (7-17); Calcium 8.9 mg/dL (8.4-10.2); Carbon Dioxide 24 mmol/L (22-30); Chloride 108 mmol/L (98-107); Glucose 88 mg/dL (74-99); Potassium 3.9 mmol/L (3.5-5.1); Sodium 138 mmol/L (137-145); Total Bilirubin 0.5 mg/dL (0.2-1.3); Total Protein 5.6 g/dL (6.3-8.2)
[2017-12-29] MEDS: NICOTINE 21MG/24HR PATCH TRANSDERM SCH (07:19)
[2017-12-29] MEDS ORDERED: PANTOPRAZOLE 40 MG TABLET PO SCH (07:30)
[2017-12-29 07:52] VITALS: BP 143/93; PULSE 90; TEMP 98.6
[2017-12-29] MEDS: ALPRAZolam 1 MG TAB PO SCH (08:42)
[2017-12-29] MEDS: BALSALAZIDE DISODIUM 750 MG CAPSULE PO SCH (08:42)
[2017-12-29] MEDS: DICYCLOMINE 20 MG TAB PO PRN (08:42)
[2017-12-29] MEDS: cloNIDine HCL 0.1 MG TAB PO SCH (08:42)
[2017-12-29 09:35] LABS: C Reactive Protein 65.9 mg/L (<10.0)
--- NOTE | 2017-12-29 12:28 | P.PN ---
Subjective Progress Note Date: 12/29/17 Principal diagnosis: 32-year-old female with a history of hepatitis C ulcerative colitis admitted with fever and abdominal pain diarrhea rectal bleeding. Status post EGD yesterday with evidence of antral ulcer. This morning she feels better. Anticipate discharge. Records from outside facility attempted yesterday in regards to her history of ulcerative colitis still pending. Objective - Vital Signs Vital signs: Vital Signs Temp 98.6 F 12/29/17 07:35 Pulse 90 12/29/17 07:35 Resp 16 12/29/17 07:35 BP 143/93 12/29/17 07:35 Pulse Ox 95 12/29/17 07:35 Intake & Output 12/28/17 12/29/17 12/29/17 18:59 06:59 18:59 Intake Total 50 300 Balance 50 300 Intake: IV 50 Oral 300 Other: Voiding Method Toilet Toilet # Voids 1 1 - Exam General appearance: The patient is alert, oriented, in no acute distress. HET: Head is normocephalic and atraumatic. Pupils are equal and reactive. Oropharynx is clear without lesions. Neck: Supple without lymphadenopathy. Trachea midline. Heart: S1 S2. Regular rate and rhythm. Lungs: No crackles or wheezes are heard. Abdomen: Soft, nontender, nondistended with bowel sounds. No peritoneal signs. No palpable organomegaly or masses. Extremities: Normal skin color and turgor. No cyanosis, rash, ulceration, clubbing, or edema. Radial and pedal pulses are 2/4 bilaterally. Neurological: No focal deficits. Strength and sensation are grossly intact. - Labs CBC & Chem 7: 12/29/17 06:19 12/29/17 06:19 Labs: Abnormal Lab Results - Last 24 Hours (Table) 12/28/17 12/29/17 12/29/17 Range/Units 10:39 06:19 06:19 WBC 10.9 H (3.8-10.6) k/uL RBC 3.48 L (3.80-5.40) m/uL Hgb 9.9 L (11.4-16.0) gm/dL Hct 31.7 L (34.0-46.0) % Neutrophils # 8.1 H (1.3-7.7) k/uL Chloride 108 H (98-107) mmol/L AST 75 H (14-36) U/L ALT 188 H (9-52) U/L Alkaline Phosphatase 132 H (38-126) U/L C-Reactive Protein 65.9 H (<10.0) mg/L Total Protein 5.6 L (6.3-8.2) g/dL Albumin 3.1 L (3.5-5.0) g/dL Hep C IgG Ab Reactive H (Non-Reactive) Microbiology - Last 24 Hours (Table) 12/27/17 07:55 Blood Culture - Preliminary Blood No Growth after 48 hours 12/27/17 08:02 Blood Culture - Preliminary Blood No Growth after 48 hours 12/26/17 13:45 Blood Culture - Preliminary Blood No Growth after 48 hours Assessment and Plan (1) Abdominal pain Narrative/Plan: 32-year-old female admitted with acute abdominal pain fever rigors chills leukocytosis sepsis with unremarkable CT of the abdomen and pelvis and reported history of ulcerative colitis diagnosed 2009 via colonoscopy at outside facility. Presently receiving intravenous antibiotics and balsalazide with improvement of her clinical symptoms. Suspect infectious gastroenteritis colitis possible exacerbation of underlying ulcerative colitis per her reported history. Current Visit: Yes Status: Acute Code(s): R10.9 - UNSPECIFIED ABDOMINAL PAIN SNOMED Code(s): 05596077 (2) Ulcerative colitis Current Visit: Yes Status: Acute Code(s): K51.90 - ULCERATIVE COLITIS, UNSPECIFIED, WITHOUT COMPLICATIONS SNOMED Code(s): 93771021 (3) Fever Current Visit: Yes Status: Acute Code(s): R50.9 - FEVER, UNSPECIFIED SNOMED Code(s): 664213067 (4) Leukocytosis Current Visit: Yes Status: Acute Code(s): D72.829 - ELEVATED WHITE BLOOD CELL COUNT, UNSPECIFIED SNOMED Code(s): 004405169 (5) Hepatitis C Current Visit: No Status: Acute Code(s): B19.20 - UNSPECIFIED VIRAL HEPATITIS C WITHOUT HEPATIC COMA SNOMED Code(s): 08056539 (6) H/O: substance abuse Current Visit: Yes Status: Resolved Code(s): Z87.898 - PERSONAL HISTORY OF OTHER SPECIFIED CONDITIONS SNOMED Code(s): 724524122 (7) Transaminitis Current Visit: Yes Status: Acute Code(s): R74.0 - NONSPEC ELEV OF LEVELS OF TRANSAMNS & LACTIC ACID DEHYDRGNSE SNOMED Code(s): 555547087 (8) Antral ulcer Current Visit: Yes Status: Acute Code(s): K25.9 - GASTRIC ULCER, UNSP ACUTE OR CHRONIC, W/O HEMOR OR PERF SNOMED Code(s): 18714279 Plan: 1. Discharge per medicine. Follow up in GI office in 3-4 weeks for reevaluation discussion of history of ulcerative colitis and hepatitis C; will have GI office request records from the [facility] in regards to her history of ulcerative colitis. Records from outside hospital were attempted yesterday however confirmation of history of ulcerative colitis could not be substantiated at this time. Assessment and plan of care discussed with Dr. Meadows
--- NOTE | 2017-12-29 12:51 | P.PN ---
Progress Note - Text Progress Note Date: 12/29/17 The patient's family being discharged today. On exam her vital signs are stable. I am soft. It. Patient will follow-up in the office.
[2017-12-29] MEDS: METHOCARBAMOL 750 MG TAB PO PRN (13:25)
--- NOTE | 2017-12-29 14:01 | PN ---
PROGRESS NOTE DATE OF SERVICE: 12/29/2017. REASON FOR CONSULTATION: Leukocytosis, possible abdominal source. INTERVAL HISTORY: The patient is currently afebrile. She is breathing comfortably. Denies having any chest pain, cough. Abdominal pain has improved. No nausea, vomiting. No diarrhea. EXAMINATION: Blood pressure 143/93 with a pulse of 90, temperature 98.6. He is 95% on room air. General description is a middle aged female lying in bed in no distress RESPIRATORY SYSTEM: Unlabored breathing. Clear to auscultation anteriorly. HEART: S1, S2. Regular rate and rhythm. ABDOMEN: Soft, no tenderness. LABS: Blood culture has been negative. White count down to 10.9. No stool culture obtained. DIAGNOSTIC IMPRESSION AND PLAN: 1. Patient admitted to the hospital with abdominal pain, nausea, vomiting and diarrhea. Concern for possible abdominal source. She did have elevated white count [id number]. Stool for C difficile was negative. Stool cultures were not obtained. Patient did show overall improvement with Unasyn. Will transition to a short course of oral Augmentin with close outpatient followup. 2. The patient with chronic hepatitis C. She has been advised to follow up in the office for further workup. MMODL / IJN: [id number] /
[2017-12-29 15:36] LABS: Hepatits C Virus RNA DETECTED (Not detected); LOG HCV IU/mL 5.63 (<1.08)
== END 2017-12-29 13:32 | disposition home or self-care (01) | DRG 387 ==
LOC: EC 13:06 → 6PED 17:35 → OBSVTOIN 12-28 16:17
PROVIDERS: ADMIT Family Medicine; ATTEND Family Medicine
PROC: 0DJ08ZZ Inspection of Upper Intestinal Tract, Via Natural or Artificial Opening Endoscopic (ICD-10-PCS; principal; 2017-12-28 15:15)
DX: K51.90 Ulcerative colitis, unspecified, without complications (principal); K25.9 Gastric ulcer, unspecified as acute or chronic, without hemorrhage or perforation; B18.2 Chronic viral hepatitis C; F12.90 Cannabis use, unspecified, uncomplicated; F17.200 Nicotine dependence, unspecified, uncomplicated; R74.8 Abnormal levels of other serum enzymes; E66.9 Obesity, unspecified; F43.10 Post-traumatic stress disorder, unspecified; Z79.899 Other long term (current) drug therapy; Z88.5 Allergy status to narcotic agent; Z90.49 Acquired absence of other specified parts of digestive tract; Z68.25 Body mass index [BMI] 25.0-25.9, adult
CPT/HCPCS: 36415; 43239; 74177; 76830; 80053; 80074; 81003; 81025; 82105; 82272; 83605; 83630; 83993; 85025; 86140; 87040; 87324; 87491; 87522; 87591; 87808; 88305; 93975; 96361; 96374; 96375; 96376; 99285